=== PATIENT | male | born 1960 | race Caucasian/White ===

== ENCOUNTER → 2016-07-21 | Outpatient (CLI) | payer OTHER | LOC: FIMAGING 17:55 | PROVIDERS: ATTEND Physician Assistant | DX: S92.251A Displaced fracture of navicular [scaphoid] of right foot, initial encounter for closed fracture (principal); M77.31 Calcaneal spur, right foot; M19.071 Primary osteoarthritis, right ankle and foot ==

== ENCOUNTER 2017-03-03 16:39 | Emergency (ER) | payer OTHER ==
--- NOTE | 2017-03-03 16:55 | CPEKG ---
Heart Rate: 96 RR Interval: 625 P-R Interval: 148 QRSD Interval: 88 QT Interval: 344 QTC Interval: 435 P [place]: 58 QRS [place]: 35 T Wave [place]: 28 EKG Severity - NORMAL ECG - EKG Impression: SINUS RHYTHM Electronically Signed By: Travon Diop 03-Mar-2017 23:12:34
--- NOTE | 2017-03-03 16:57 | EDPHY ---
H & P Stated Complaint: Chest pain, sob w/ deep breath Time Seen by Provider: 03/03/17 16:55 HPI/ROS: CHIEF COMPLAINT: Chest pain, shortness of breath HISTORY OF PRESENT ILLNESS: The patient is a 56 y/o male complaining of worsening chest pain and shortness of breath, onset last night. The pain began last night and was primarily located on both lateral sides of his chest. This morning it hurt more when he took a deep breath. Later today he started to have only right-sided chest pain and became short of breath. When he takes a deep breath the pain is a 6/10, when he is not taking a deep breath the pain is a 3/10. He is more comfortable while sitting up. Denies tobacco, alcohol, recent travel, recent fall, fever, chills, cough or other pertinent symptoms. Mother of PE after surgery; father of heart failure at 84 y/o. REVIEW OF SYSTEMS: A comprehensive 10 point review of systems is otherwise negative aside from elements mentioned in the history of present illness. PMH: Hypertension, hypercholesteremia SOCIAL HISTORY: Works for [employer], single, lives in [place] PHYSICAL EXAM: Gen: Awake, Alert, No Distress HEENT: Nose: no rhinorrhea Eyes: PERRLA, EOMI Mouth: Moist mucosa Neck: Supple, no JVD Chest: Right-sided point tenderness, lungs clear to auscultation Heart: S1, S2 normal, no murmur Abd: Soft, non-tender, no guarding Back: no CVA tenderness, no midline tenderness Ext: no edema, non-tender Skin: no rash Neuro: CN II-XII intact, Sensation grossly intact, Strength 5/5 in bilateral upper and lower extremities - Personal History Current Tetanus/Diphtheria Vaccine: Yes Tetanus Vaccine Date: with in the last 7 years - Medical/Surgical History Hx Asthma: No Hx Chronic Respiratory Disease: No Hx Diabetes: No Hx Cardiac Disease: No Hx Renal Disease: No Hx Cirrhosis: No Hx Alcoholism: No Hx HIV/AIDS: No Hx Splenectomy or Spleen Trauma: No Other PMH: spinal fusion c5-7 - Social History Smoking Status: Former smoker Constitutional: Initial Vital Signs Temperature (C) 37.6 C 03/03/17 16:39 Heart Rate 94 03/03/17 16:39 Respiratory Rate 16 03/03/17 16:39 Blood Pressure 136/118 H 03/03/17 16:39 O2 Sat (%) 93 03/03/17 16:39 O2 Delivery Mode Room Air Allergies/Adverse Reactions: No Known Allergies Allergy (Unverified 01/05/16 19:58) Home Medications: Medication Instructions Recorded Cholecalciferol Vit D3 [Vitamin D3 5,000 units PO DAILY 12/19/14 (*)] Sennosides/Docusate Sodium 1 tab PO BID #30 tab 12/25/14 [Senokot-S] Aspirin 81mg (*) 01/05/16 Fish Oil 01/05/16 Hydrocodone/APAP 5/325 [[place] 1 - 2 tab PO Q4H PRN #15 tab 01/05/16 5/325] Lipitor 01/05/16 Hydrocodone/Acetaminophen 1 - 2 each PO Q4-6PRN PRN #10 03/03/17 [Hydrocodon-Acetaminophen 5-325] tablet Medical Decision Making - Diagnostics Imaging Results: Imaging Impressions Chest X-Ray 03/03/17 18:26 Impression: Findings suggestive of airways disease are noted. Imaging: I viewed and interpreted images myself ED Course/Re-evaluation: The patient is a 56 y/o male presenting with shortness of breath and chest pain. On exam, he has right-sided point tenderness to his chest. Plan on labs and EKG. The 12 lead EKG was interpreted by myself. See hard copy and/or "tracemaster" electronic copy for interpretation. 1824: D-dimer is negative. His nurse reports the patient is in a significant amount of pain. Plan on Chest x-ray and 30mg IV Toradol. 1913: Chest x-ray shows a possible airway disease. 1914: Reassessed patient and discussed laboratory and imaging findings. He will be given an inspirometer to monitor his breathing every 10 minutes while awake. He will also be prescribed [place]. Return precautions provided; patient is comfortable with this plan. - Data Points Laboratory Results: Laboratory Results 03/03/17 17:10 03/03/17 17:10 03/03/17 03/03/17 03/03/17 18:50 17:10 17:10 WBC RBC Hgb Hct MCV MCH MCHC RDW Plt Count MPV Neut % (Auto) Lymph % (Auto) Major % (Auto) Eos % (Auto) Baso % (Auto) Nucleat RBC Rel Count Absolute Neuts (auto) Absolute Lymphs (auto) Absolute Monos (auto) Absolute Eos (auto) Absolute Basos (auto) Absolute Nucleated RBC Immature Gran % Immature Gran # D-Dimer 0.32 ug/mLFEU ug/mLFEU (0.00-0.50) Sodium 135 mEq/L mEq/L (134-144) Potassium 4.3 mEq/L mEq/L (3.5-5.2) Chloride 97 mEq/L mEq/L (97-110) Carbon Dioxide 25 mEq/l mEq/l (22-31) Anion Gap 13 mEq/L mEq/L (8-16) BUN 24 mg/dL H mg/dL (7-23) Creatinine 1.0 mg/dL mg/dL (0.7-1.3) Estimated GFR > 60 Glucose 92 mg/dL mg/dL (70-100) Calcium 9.8 mg/dL mg/dL (8.5-10.4) Troponin I < 0.012 ng/mL ng/mL (0.000-0.034) Urine Color YELLOW Urine Appearance CLEAR Urine pH 5.0 (5.0-7.5) Ur Specific Carrier 1.020 (1.002-1.030) Urine Protein NEGATIVE (NEGATIVE) Urine Ketones 1+ H (NEGATIVE) Urine Blood NEGATIVE (NEGATIVE) Urine Nitrate NEGATIVE (NEGATIVE) Urine Bilirubin NEGATIVE (NEGATIVE) Urine Urobilinogen NEGATIVE EU EU (0.2-1.0) Ur Leukocyte Esterase NEGATIVE (NEGATIVE) Urine Glucose NEGATIVE (NEGATIVE) 03/03/17 17:10 WBC 13.52 10^3/uL H 10^3/uL (3.80-9.50) RBC 5.65 10^6/uL 10^6/uL (4.40-6.38) Hgb 17.6 g/dL H g/dL (13.7-17.5) Hct 51.7 % H % (40.0-51.0) MCV 91.5 fL fL (81.5-99.8) MCH 31.2 pg pg (27.9-34.1) MCHC 34.0 g/dL g/dL (32.4-36.7) RDW 15.0 % % (11.5-15.2) Plt Count 241 10^3/uL 10^3/uL (150-400) MPV 9.8 fL fL (8.7-11.7) Neut % (Auto) 74.9 % H % (39.3-74.2) Lymph % (Auto) 15.4 % % (15.0-45.0) Major % (Auto) 7.9 % % (4.5-13.0) Eos % (Auto) 1.0 % % (0.6-7.6) Baso % (Auto) 0.4 % % (0.3-1.7) Nucleat RBC Rel Count 0.0 % % (0.0-0.2) Absolute Neuts (auto) 10.12 10^3/uL H 10^3/uL (1.70-6.50) Absolute Lymphs (auto) 2.08 10^3/uL 10^3/uL (1.00-3.00) Absolute Monos (auto) 1.07 10^3/uL H 10^3/uL (0.30-0.80) Absolute Eos (auto) 0.13 10^3/uL 10^3/uL (0.03-0.40) Absolute Basos (auto) 0.06 10^3/uL 10^3/uL (0.02-0.10) Absolute Nucleated RBC 0.00 10^3/uL 10^3/uL (0-0.01) Immature Gran % 0.4 % % (0.0-1.1) Immature Gran # 0.06 10^3/uL 10^3/uL (0.00-0.10) D-Dimer Sodium Potassium Chloride Carbon Dioxide Anion Gap BUN Creatinine Estimated GFR Glucose Calcium Troponin I Urine Color Urine Appearance Urine pH Ur Specific Carrier Urine Protein Urine Ketones Urine Blood Urine Nitrate Urine Bilirubin Urine Urobilinogen Ur Leukocyte Esterase Urine Glucose Medications Given: Discontinued Medications Hydrocodone Bitart/Acetaminophen ([place] 5/325mg Prepack#6) 1 btl TAKEHOME EDNOW ONE Stop: 03/03/17 19:27 Last Admin: 03/03/17 19:35 Dose: 1 btl Ketorolac Tromethamine (Toradol) 15 mg IVP EDNOW ONE Stop: 03/03/17 18:26 Last Admin: 03/03/17 18:27 Dose: 15 mg Departure - Departure Disposition: Home, Routine, Self-Care Clinical Impression: Chest wall pain Condition: Good Instructions: Hydrocodone/Acetaminophen (By mouth), Chest Wall Pain (ED) Additional Instructions: 1. Use your inspirometer every 10 minutes while awake. 2. Take ibuprofen as needed for pain. 3. Take 1-2 [place] Q4-6 PRN. 4. Follow up with your primary care provider in the next 3-4 days. 5. Return to the ED if you experience chest pain, severe shortness of breath, numbness, weakness, fever or other worsening symptoms. Referrals: Staci Chowdhury PA [Primary Care Provider] - As per Instructions Prescriptions: Hydrocodone/Acetaminophen [Hydrocodon-Acetaminophen 5-325] 1 - 2 each PO Q4- 6PRN PRN #10 tablet PRN Reason: Pain, Severe Report Scribed for: Travon Diop Report Scribed by: Laurel Barrera Date of Report: 03/03/17 Time of Report: 16:57
[2017-03-03 17:35] LABS: ANION GAP 13 mEq/L (8-16); CALCIUM 9.8 mg/dL (8.5-10.4); CARBON DIOXIDE 25 mEq/l (22-31); CHLORIDE 97 mEq/L (97-110); GLOMERULAR FILTRATION RATE > 60; GLUCOSE 92 mg/dL (70-100); POTASSIUM 4.3 mEq/L (3.5-5.2); SODIUM 135 mEq/L (134-144)
[2017-03-03 17:47] LABS: TROPONIN I < 0.012 ng/mL (0.000-0.034)
[2017-03-03 17:48] LABS: % IMMATURE GRANULYOCYTES 0.4 % (0.0-1.1); ABSOLUTE IMMATURE GRANULOCYTES 0.06 10^3/uL (0.00-0.10); ADD DIFF? NO; ADD MORPH? NO; ADD SCAN? NO; ATYPICAL LYMPHOCYTE FLAG 0 (0-99); FRAGMENT RBC FLAG 0 (0-99); HEMATOCRIT 51.7 % (40.0-51.0); HEMOGLOBIN 17.6 g/dL (13.7-17.5); LEFT SHIFT FLG 0 (0-99); LIPEMIA HEMOLYSIS FLAG 90 (0-99); MEAN CELL HEMOGLOBIN 31.2 pg (27.9-34.1); MEAN CELL VOLUME 91.5 fL (81.5-99.8); MEAN PLATELET VOLUME 9.8 fL (8.7-11.7); PLATELET CLUMPS FLAG 0 (0-99); PLATELET COUNT 241 10^3/uL (150-400); RED BLOOD CELL COUNT 5.65 10^6/uL (4.40-6.38)
[2017-03-03] MEDS ORDERED: KETOROLAC 30 MG/1 ML SDV IVP ONE (18:24)
[2017-03-03] MEDS ORDERED: KETOROLAC 15 MG/1 ML SDV IVP ONE (18:25)
[2017-03-03 19:05] LABS: COLOR YELLOW; LEUKOCYTE ESTERASE,URINE NEGATIVE (NEGATIVE); NITRITE,URINE NEGATIVE (NEGATIVE)
[2017-03-03] MEDS ORDERED: HYDROCOD/APAP 5/325 PREPACK#6 BTL TAKEHOME ONE (19:26)
[2017-03-03 19:28] VITALS: BP 144/80; PULSE 85; RESP 20; TEMP 98.2; O2SAT 94
== END 2017-03-03 19:39 | disposition home or self-care (01) ==
DX: R07.89 Other chest pain (principal); I10 Essential (primary) hypertension; Z87.891 Personal history of nicotine dependence; Z79.82 Long term (current) use of aspirin
CPT/HCPCS: 96374; J1885

== ENCOUNTER 2017-03-05 08:47 | Observation (INO) | payer OTHER ==
[2017-03-05] MEDS ORDERED: ONDANSETRON 4 MG/2 ML VIAL IVP ONE (08:56)
[2017-03-05] MEDS ORDERED: HYDROmorphONE/DILAUDID 1 MG/ML INJ IVP ONE ×2 (08:56→09:18)
[2017-03-05] MEDS ORDERED: NS 1,000 ML IV ONE (08:56)
[2017-03-05] MEDS ORDERED: KETOROLAC 30 MG/1 ML SDV IVP ONE ×2 (08:56→13:34)
[2017-03-05] MEDS ORDERED: ONDANSETRON 4 MG/2 ML VIAL ONE (08:58)
[2017-03-05] MEDS ORDERED: KETOROLAC 30 MG/1 ML SDV ONE (08:58)
[2017-03-05] MEDS ORDERED: HYDROmorphONE/DILAUDID 1 MG/ML INJ ONE (08:58)
--- NOTE | 2017-03-05 09:08 | EDPHY ---
H & P <Audi Del Valle - Last Filed: 03/05/17 10:09> Stated Complaint: r chest and back pain Source: Patient Exam Limitations: No limitations - Personal History Current Tetanus/Diphtheria Vaccine: Yes Tetanus Vaccine Date: with in the last 7 years - Medical/Surgical History Hx Asthma: No Hx Chronic Respiratory Disease: No Hx Diabetes: No Hx Cardiac Disease: No Hx Renal Disease: No Hx Cirrhosis: No Hx Alcoholism: No Hx HIV/AIDS: No Hx Splenectomy or Spleen Trauma: No Other PMH: Medical Hx: denies. Surgical Hx: spinal fusion c5-7. Social Hx: employee at [employer] - Social History Smoking Status: Former smoker <AndreVanessa - Last Filed: 03/05/17 11:52> Time Seen by Provider: 03/05/17 09:04 HPI/ROS: HPI: This is a 56-year-old male who presents with Chief Complaint: Right upper quadrant pain Location: Right upper quadrant/right flank Quality: Pain Duration: Since Signs and Symptoms: No fever, no chills, no nausea, no vomiting, no shortness of breath, no diaphoresis, no diarrhea, no dysuria, no back pain Timing: Worsening Severity: 03/07 Context: Patient presents with complaints of right upper quadrant/right flank sharp, constant, nonradiating pain that has worsened since . He was seen here on 03/03/2017 with complaints at that time of right anterior lower rib pain; he had an extensive workup that ruled out ACS/pneumonia/pulmonary embolism/congestive heart failure. He reports that the pain has been constant since then but rapidly worsened this morning to the worse it has ever been. He has no history of kidney stones. No history of abdominal surgeries. Had a bowel movement yesterday but did not have 1 today. Notes that he has lost 10 lb over last 2 months due to change in diet. Modifying Factors: [place] without relief Comment: ROS: see HPI Constitutional: No fever, no chills, no weight loss Eyes: No blurred vision Respiratory: No shortness of breath, no cough Cardiovascular: No chest pain Gastrointestinal: No nausea, no vomiting, no diarrhea Genitourinary: No dysuria Extremities: No myalgias Neurologic: No weakness, no numbness Skin: No rashes Hematologic: No bruising, no bleeding CONSTITUTIONAL: Overweight adult white male, nontoxic appearance, awake and alert, moderate distress HEENT: Atraumatic and normocephalic, PERRL, EOMI. Tympanic membranes clear. Oropharynx clear, no exudate and moist pink mucosa. Airway patent. No lymphadenopathy. No meningismus. Cardiovascular: Normal S1/S2, regular rate, regular rhythm, without murmur rub or gallop. PULMONARY/CHEST: Symmetrical and nontender. Clear to auscultation bilaterally. Good air movement. No accessory muscle usage. ABDOMEN: Soft, nondistended, right upper quadrant moderate tenderness, no rebound, no guarding, no peritoneal signs, no masses or organomegaly. + right CVAT. EXTREMITIES: 2/2 pulses, no deformities, no clubbing, no cyanosis or edema. NEUROLOGICAL: no focal neuro deficits. GCS 15. SKIN: Warm and dry, no erythema. no rash. Good capillary refill. (Vanessa Powell) Constitutional: Initial Vital Signs Temperature (C) 36.3 C 03/05/17 08:49 Heart Rate 95 03/05/17 08:49 Respiratory Rate 18 03/05/17 08:49 Blood Pressure 189/82 H 03/05/17 08:49 O2 Sat (%) 92 03/05/17 08:49 O2 Delivery Mode Nasal Cannula O2 (L/minute) 2 Allergies/Adverse Reactions: No Known Allergies Allergy (Verified 03/05/17 08:47) Home Medications: Medication Instructions Recorded Cholecalciferol Vit D3 [Vitamin D3 5,000 units PO DAILY 12/19/14 (*)] Sennosides/Docusate Sodium 1 tab PO BID #30 tab 12/25/14 [Senokot-S] Aspirin 81mg (*) 01/05/16 Fish Oil 01/05/16 Hydrocodone/APAP 5/325 [[place] 1 - 2 tab PO Q4H PRN #15 tab 01/05/16 5/325] Lipitor 01/05/16 Hydrocodone/Acetaminophen 1 - 2 each PO Q4-6PRN PRN #10 03/03/17 [Hydrocodon-Acetaminophen 5-325] tablet Medical Decision Making <Audi Del Valle - Last Filed: 03/05/17 10:09> <Vanessa Powell - Last Filed: 03/05/17 11:52> - Diagnostics Imaging Results: Imaging Impressions Abdomen Ultrasound 03/05/17 08:58 Impression: Limited study secondary to overlying bowel gas. Mild sludge is seen in the gallbladder with no evidence for cholecystitis. Renal cortical cyst right kidney. Abdomen/Pelvis CT 03/05/17 08:58 Impression: 1. Pneumonia right lower lobe and small right pleural effusion. Possible subtle infiltrate left lower lobe and right middle lobe. 2. No evidence for nephrolithiasis or hydronephrosis. No evidence for ureteral calculus or dilatation. 3. Other chronic findings, as above. Results called and discussed with Vanessa Powell PA-C on 05 March 2017 at 1055 hours. Attention: This CT examination is specifically designed to evaluate patients who are clinically suspected of having acute obstructive uropathy. This examination does not use radiographic contrast, and as such, provides only a limited evaluation of the abdomen, pelvis, and retroperitoneum. If there is further clinical suspicion for pathological conditions other than obstructive uropathy, a complete CT evaluation of the abdomen and pelvis utilizing intravenous, oral, and rectal contrast should be considered. Procedures: 12 lead EKG: Indication: Abdominal pain Rhythm: Normal sinus rhythm, rate 86 beats per minute [place]: Normal Intervals: Normal QRS: Normal ST segments: Normal INTERPRETATION: Normal EKG. Comparison: 03/05/2017; no changes The 12 lead EKG was interpreted by myself and with attending. (Vanessa Powell) ED Course/Re-evaluation: Labs, IV fluids, IV medications, CT abdomen and pelvis without contrast, right upper quadrant ultrasound, EKG ordered 0845: Patient given IV Toradol, IV Dilaudid, IV Zofran, 1 L normal saline bolus upon arrival Afebrile. No systemic signs. 940: Labs reviewed and no significant abnormality including no elevated LFTs or obstructive pathology seen 1050: Called by radiologist who advised ultrasound shows mild sludge and small stone. CT abdominal pelvis scan does not show any appendicitis, cholecystitis, kidney stones. Does show patchy infiltrate in the right lower lobe. 1150: Bcx and IV Levaquin for community-acquired pneumonia. Discussed case with attending and could be referred from splinting; no signs of sepsis/hypoxia 1100: Reassessed patient and pain finally controlled 1110: Consult with Dr. Deng in regards to gallbladder disease who will kindly admit patient for further care. (Vanessa Powell) Differential Diagnosis: Abdominal pain including but not limited to appendicitis, cholecystitis, nephrolithiasis, gastritis and urinary tract infection. (Vanessa Powell) Other Provider: 1007: Assessed patient at the request of Vanessa Powell, PAC. I concur with Vanessa Powell's findings. (Audi Del Valle) - Data Points Laboratory Results: Laboratory Results 03/05/17 09:00 03/05/17 09:00 03/05/17 03/05/17 03/05/17 09:00 09:00 09:00 WBC 10.18 10^3/uL H 10^3/uL (3.80-9.50) RBC 5.66 10^6/uL 10^6/uL (4.40-6.38) Hgb 17.6 g/dL H g/dL (13.7-17.5) Hct 52.4 % H % (40.0-51.0) MCV 92.6 fL fL (81.5-99.8) MCH 31.1 pg pg (27.9-34.1) MCHC 33.6 g/dL g/dL (32.4-36.7) RDW 15.0 % % (11.5-15.2) Plt Count 233 10^3/uL 10^3/uL (150-400) MPV 9.5 fL fL (8.7-11.7) Neut % (Auto) 73.6 % % (39.3-74.2) Lymph % (Auto) 16.9 % % (15.0-45.0) [place] % (Auto) 7.5 % % (4.5-13.0) Eos % (Auto) 1.2 % % (0.6-7.6) Baso % (Auto) 0.3 % % (0.3-1.7) Nucleat RBC Rel Count 0.0 % % (0.0-0.2) Absolute Neuts (auto) 7.50 10^3/uL H 10^3/uL (1.70-6.50) Absolute Lymphs (auto) 1.72 10^3/uL 10^3/uL (1.00-3.00) Absolute Monos (auto) 0.76 10^3/uL 10^3/uL (0.30-0.80) Absolute Eos (auto) 0.12 10^3/uL 10^3/uL (0.03-0.40) Absolute Basos (auto) 0.03 10^3/uL 10^3/uL (0.02-0.10) Absolute Nucleated RBC 0.00 10^3/uL 10^3/uL (0-0.01) Immature Gran % 0.5 % % (0.0-1.1) Immature Gran # 0.05 10^3/uL 10^3/uL (0.00-0.10) PT 12.5 SEC SEC (12.0-15.0) INR 0.94 (0.83-1.16) APTT 26.7 SEC SEC (23.0-38.0) VBG Lactic Acid Sodium 140 mEq/L mEq/L (134-144) Potassium 4.1 mEq/L mEq/L (3.5-5.2) Chloride 99 mEq/L mEq/L (97-110) Carbon Dioxide 27 mEq/l mEq/l (22-31) Anion Gap 14 mEq/L mEq/L (8-16) BUN 18 mg/dL mg/dL (7-23) Creatinine 0.9 mg/dL mg/dL (0.7-1.3) Estimated GFR > 60 Glucose 107 mg/dL H mg/dL (70-100) Calcium 9.6 mg/dL mg/dL (8.5-10.4) Total Bilirubin 1.5 mg/dL H mg/dL (0.1-1.4) Conjugated Bilirubin 0.3 mg/dL mg/dL (0.0-0.5) Unconjugated Bilirubin 1.2 mg/dL H mg/dL (0.0-1.1) AST 29 IU/L IU/L (17-59) ALT 49 IU/L IU/L (21-72) Alkaline Phosphatase 68 IU/L IU/L (38-126) Total Protein 8.1 g/dL g/dL (6.3-8.2) Albumin 4.6 g/dL g/dL (3.5-5.0) Lipase 85 IU/L IU/L (23-300) 03/05/17 09:00 WBC RBC Hgb Hct MCV MCH MCHC RDW Plt Count MPV Neut % (Auto) Lymph % (Auto) [place] % (Auto) Eos % (Auto) Baso % (Auto) Nucleat RBC Rel Count Absolute Neuts (auto) Absolute Lymphs (auto) Absolute Monos (auto) Absolute Eos (auto) Absolute Basos (auto) Absolute Nucleated RBC Immature Gran % Immature Gran # PT INR APTT VBG Lactic Acid 1.5 mmol/L mmol/L (0.7-2.1) Sodium Potassium Chloride Carbon Dioxide Anion Gap BUN Creatinine Estimated GFR Glucose Calcium Total Bilirubin Conjugated Bilirubin Unconjugated Bilirubin AST ALT Alkaline Phosphatase Total Protein Albumin Lipase Medications Given: Discontinued Medications Hydromorphone HCl (Dilaudid) 1 mg IVP EDNOW ONE Stop: 03/05/17 08:57 Last Admin: 03/05/17 09:03 Dose: 1 mg Hydromorphone HCl (Dilaudid) 0.5 mg IVP EDNOW ONE Stop: 03/05/17 09:19 Last Admin: 03/05/17 09:21 Dose: 0.5 mg Hydromorphone HCl (Dilaudid) 1 mg IVP EDNOW ONE Stop: 03/05/17 09:20 Last Admin: 03/05/17 09:34 Dose: 0.5 mg Sodium Chloride (Ns) 1,000 mls @ 0 mls/hr IV EDNOW ONE; Wide Open PRN Reason: Protocol Stop: 03/05/17 08:57 Last Admin: 03/05/17 09:00 Dose: 1,000 mls Ketorolac Tromethamine (Toradol) 30 mg IVP EDNOW ONE Stop: 03/05/17 08:57 Last Admin: 03/05/17 09:02 Dose: 30 mg Ondansetron HCl (Zofran) 4 mg IVP EDNOW ONE Stop: 03/05/17 08:57 Last Admin: 03/05/17 09:01 Dose: 4 mg Departure <Audi Del Valle - Last Filed: 03/05/17 10:09> <Vanessa Powell - Last Filed: 03/05/17 11:52> - Departure Disposition: [facility] Clinical Impression: Sludge in gallbladder Community acquired pneumonia Qualifiers: Laterality: right Lung location: lower lobe of lung Qualified Code(s): J18.1 - Lobar pneumonia, unspecified organism Report Scribed for: Audi Del Valle Report Scribed by: Laurel Barrera Date of Report: 03/05/17 Time of Report: 10:08 <Audi Del Valle M - Last Filed: 03/05/17 10:09>
[2017-03-05 09:11] LABS: % IMMATURE GRANULYOCYTES 0.5 % (0.0-1.1); ABSOLUTE IMMATURE GRANULOCYTES 0.05 10^3/uL (0.00-0.10); ADD DIFF? NO; ADD MORPH? NO; ADD SCAN? NO; ATYPICAL LYMPHOCYTE FLAG 0 (0-99); FRAGMENT RBC FLAG 0 (0-99); HEMATOCRIT 52.4 % (40.0-51.0); HEMOGLOBIN 17.6 g/dL (13.7-17.5); LEFT SHIFT FLG 0 (0-99); LIPEMIA HEMOLYSIS FLAG 80 (0-99); MEAN CELL HEMOGLOBIN 31.1 pg (27.9-34.1); MEAN CELL HEMOGLOBIN CONCENTR. 33.6 g/dL (32.4-36.7); MEAN CELL VOLUME 92.6 fL (81.5-99.8); MEAN PLATELET VOLUME 9.5 fL (8.7-11.7); PLATELET CLUMPS FLAG 0 (0-99); PLATELET COUNT 233 10^3/uL (150-400); RED BLOOD CELL COUNT 5.66 10^6/uL (4.40-6.38)
--- NOTE | 2017-03-05 09:17 | CPEKG ---
Heart Rate: 90 RR Interval: 667 P-R Interval: 148 QRSD Interval: 94 QT Interval: 344 QTC Interval: 421 P [place]: 45 QRS [place]: 26 T Wave [place]: 9 EKG Severity - NORMAL ECG - EKG Impression: SINUS RHYTHM Electronically Signed By: Chris Alberto 07-Mar-2017 20:16:29
[2017-03-05 09:22] LABS: INR 0.94 (0.83-1.16); PROTIME(PATIENT) 12.5 SEC (12.0-15.0)
[2017-03-05 09:23] LABS: APTT 26.7 SEC (23.0-38.0)
[2017-03-05 09:26] LABS: ALANINE AMINOTRANSFERASE 49 IU/L (21-72); ALBUMIN 4.6 g/dL (3.5-5.0); ALKALINE PHOSPHATASE 68 IU/L (38-126); ANION GAP 14 mEq/L (8-16); ASPARTATE AMINOTRANSFERASE 29 IU/L (17-59); BILIRUBIN,TOTAL 1.5 mg/dL (0.1-1.4); BILIRUBIN-CONJUGATED 0.3 mg/dL (0.0-0.5); BILIRUBIN-UNCONJUGATED 1.2 mg/dL (0.0-1.1); CALCIUM 9.6 mg/dL (8.5-10.4); CARBON DIOXIDE 27 mEq/l (22-31); CHLORIDE 99 mEq/L (97-110); CREATININE 0.9 mg/dL (0.7-1.3); GLOMERULAR FILTRATION RATE > 60; GLUCOSE 107 mg/dL (70-100); POTASSIUM 4.1 mEq/L (3.5-5.2); SODIUM 140 mEq/L (134-144); TOTAL PROTEIN 8.1 g/dL (6.3-8.2)
[2017-03-05] MEDS: HYDROmorphONE/DILAUDID 1 MG/ML INJ IVP ONE ×2 (09:30→09:34)
[2017-03-05] MEDS ORDERED: levOFLOXACIN 750 MG/DEXTROSE/150 ML BAG IV ONE (12:52)
[2017-03-05 13:01] LABS: COLOR YELLOW; LEUKOCYTE ESTERASE,URINE NEGATIVE (NEGATIVE); NITRITE,URINE NEGATIVE (NEGATIVE)
--- NOTE | 2017-03-05 13:29 | SOAPPROG ---
[facility] Progress Note Assessment/Plan: Assessment: 56-YEAR-OLD MALE ADMITTED WITH RIGHT UPPER QUADRANT PAIN EXTENDING INTO HIS BACK FOR 3 DAYS/SEEN IN THE ER ON MONDAY WITH A NEGATIVE WORKUP FOR PULMONARY EMBOLUS AT THIS ADMISSION CT SCAN IS NEGATIVE FOR ANY MAJOR ETIOLOGY EXCEPT FOR PNEUMONIA AND SMALL PLEURAL EFFUSION ON THE RIGHT SIDE GALLBLADDER ULTRASOUND SHOWS SOME SLUDGE BUT NO STONES ARE THICKNESS/LFTS HAVE BEEN NORMAL/WBC IS 10.4 AFEBRILE HEENT WITHOUT ADENOPATHY OR ORAL LESIONS OR ICTERUS CHEST CLEAR AND SYMMETRIC COR REGULAR RHYTHM ABDOMEN SOFT WITH MINIMAL RIGHT UPPER QUADRANT TENDERNESS EXTREMITIES ARE BENIGN WITH FULL RANGE OF MOTION FULL PULSES, HE DOES HAVE SOME VARICOSE VEINS SKIN REVEALS NO MAJOR ABNORMALITIES IMPRESSION: I SUSPECT HE IS GETTING A RIGHT LOWER LOBE PNEUMONIA RATHER GALLBLADDER TROUBLE WITH NORMAL LFTS IN A NEGATIVE ULTRASOUND Plan: ADMIT FOR OBSERVATION AND PAIN CONTROL/CONSIDER HIDA SCAN IF PAIN DOES NOT RESOLVE QUICKLY 03/05/17 13:25 Objective: Vital Signs Temp Pulse Resp BP Pulse Ox 36.3 C 93 16 117/66 93 03/05/17 08:49 03/05/17 12:56 03/05/17 12:56 03/05/17 12:56 03/05/17 12:56 PT 12.5 SEC (12.0-15.0) 03/05/17 09:00 INR 0.94 (0.83-1.16) 03/05/17 09:00 ICD10 Worksheet Patient Problems: Problems Problem Status Onset Community acquired pneumonia Acute Sludge in gallbladder Acute Cervical radiculitis Acute Neck pain Acute
[2017-03-05] MEDS ORDERED: ONDANSETRON 4 MG/2 ML VIAL IVP PRN (13:34)
[2017-03-05] MEDS ORDERED: HYDROmorphONE/DILAUDID 1 MG/ML INJ IVP PRN (13:34)
[2017-03-05] MEDS: OXYCODONE/APAP 5/325 TAB PO PRN ×3 (15:07→22:16)
[2017-03-05] MEDS: D5W 1/2 NS W/ 20 KCl/L 1,000 ML IV SCH (15:09)
[2017-03-05] MEDS: KETOROLAC 15 MG/1 ML SDV IVP SCH ×2 (18:10→23:31)
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
--- NOTE | 2017-03-05 20:26 | SOAPPROG ---
[facility] Progress Note Assessment/Plan: Assessment: 56-YEAR-OLD MALE ADMITTED WITH RIGHT UPPER QUADRANT PAIN EXTENDING INTO HIS BACK FOR 3 DAYS/SEEN IN THE ER ON MONDAY WITH A NEGATIVE WORKUP FOR PULMONARY EMBOLUS AT THIS ADMISSION CT SCAN IS NEGATIVE FOR ANY MAJOR ETIOLOGY EXCEPT FOR PNEUMONIA AND SMALL PLEURAL EFFUSION ON THE RIGHT SIDE GALLBLADDER ULTRASOUND SHOWS SOME SLUDGE BUT NO STONES ARE THICKNESS/LFTS HAVE BEEN NORMAL/WBC IS 10.4 AFEBRILE HEENT WITHOUT ADENOPATHY OR ORAL LESIONS OR ICTERUS CHEST CLEAR AND SYMMETRIC COR REGULAR RHYTHM ABDOMEN SOFT WITH MINIMAL RIGHT UPPER QUADRANT TENDERNESS EXTREMITIES ARE BENIGN WITH FULL RANGE OF MOTION FULL PULSES, HE DOES HAVE SOME VARICOSE VEINS SKIN REVEALS NO MAJOR ABNORMALITIES IMPRESSION: I SUSPECT HE IS GETTING A RIGHT LOWER LOBE PNEUMONIA RATHER GALLBLADDER TROUBLE WITH NORMAL LFTS IN A NEGATIVE ULTRASOUND Plan: ADMIT FOR OBSERVATION AND PAIN CONTROL/CONSIDER HIDA SCAN IF PAIN DOES NOT RESOLVE QUICKLY 03/05/17 13:25 03/05/17 20:25 much better last h &p note on wrong pt Objective: Vital Signs Temp Pulse Resp BP Pulse Ox 37.0 C 91 18 130/64 H 97 03/05/17 20:00 03/05/17 20:00 03/05/17 20:00 03/05/17 20:00 03/05/17 20:00 03/04/17 03/05/17 03/06/17 05:59 05:59 05:59 Intake Total 225 Balance 225 PT 12.5 SEC (12.0-15.0) 03/05/17 09:00 INR 0.94 (0.83-1.16) 03/05/17 09:00 ICD10 Worksheet Patient Problems: Problems Problem Status Onset Community acquired pneumonia Acute Sludge in gallbladder Acute Cervical radiculitis Acute Neck pain Acute
[2017-03-05] MEDS: GABAPENTIN 300 MG CAP PO SCH (20:51)
[2017-03-05] MEDS: SENNOSIDES 1 TAB PO SCH (20:52)
[2017-03-05] MEDS ORDERED: Melatonin/Pyridoxine [Melatonin 5 Mg Tablet] PO SCH (21:00)
[2017-03-06] MEDS: D5W 1/2 NS W/ 20 KCl/L 1,000 ML IV SCH (05:00)
[2017-03-06] MEDS: KETOROLAC 15 MG/1 ML SDV IVP SCH ×4 (05:02→23:59)
[2017-03-06 05:30] LABS: % IMMATURE GRANULYOCYTES 0.6 % (0.0-1.1); ABSOLUTE IMMATURE GRANULOCYTES 0.05 10^3/uL (0.00-0.10); ADD DIFF? NO; ADD MORPH? NO; ADD SCAN? NO; ATYPICAL LYMPHOCYTE FLAG 0 (0-99); FRAGMENT RBC FLAG 0 (0-99); HEMATOCRIT 44.6 % (40.0-51.0); HEMOGLOBIN 14.9 g/dL (13.7-17.5); LEFT SHIFT FLG 0 (0-99); LIPEMIA HEMOLYSIS FLAG 80 (0-99); MEAN CELL HEMOGLOBIN 31.2 pg (27.9-34.1); MEAN CELL HEMOGLOBIN CONCENTR. 33.4 g/dL (32.4-36.7); MEAN CELL VOLUME 93.5 fL (81.5-99.8); MEAN PLATELET VOLUME 9.8 fL (8.7-11.7); PLATELET CLUMPS FLAG 10 (0-99); PLATELET COUNT 206 10^3/uL (150-400); RED BLOOD CELL COUNT 4.77 10^6/uL (4.40-6.38); RED CELL DISTRIBUTION WIDTH 14.9 % (11.5-15.2)
[2017-03-06 05:56] LABS: ALANINE AMINOTRANSFERASE 33 IU/L (21-72); ALBUMIN 3.3 g/dL (3.5-5.0); ALKALINE PHOSPHATASE 49 IU/L (38-126); AMYLASE 32 IU/L (30-110); ANION GAP 9 mEq/L (8-16); ASPARTATE AMINOTRANSFERASE 27 IU/L (17-59); BILIRUBIN,TOTAL 1.1 mg/dL (0.1-1.4); BILIRUBIN-CONJUGATED 0.3 mg/dL (0.0-0.5); BILIRUBIN-UNCONJUGATED 0.8 mg/dL (0.0-1.1); CALCIUM 8.4 mg/dL (8.5-10.4); CARBON DIOXIDE 24 mEq/l (22-31); CHLORIDE 102 mEq/L (97-110); CREATININE 0.9 mg/dL (0.7-1.3); GLOMERULAR FILTRATION RATE > 60; GLUCOSE 88 mg/dL (70-100); POTASSIUM 4.1 mEq/L (3.5-5.2); SODIUM 135 mEq/L (134-144)
--- NOTE | 2017-03-06 10:52 | SOAPPROG ---
[facility] Progress Note Assessment/Plan: Assessment/Plan: 56 Y M admitted with RUQ abd pain. US shows sludge. LFTs ok. WBC mildly elevated upon admit--10,000. Afebrile. CT to r/o nephrolithiasis shows possible RLL PNA. Awaiting HIDA and CXR. Suspect problem is PNA. Will consult hospitalist service. Will wait to start abx until HIDA results. Seen and examined by Dr. Deng. 03/06/17 10:52 Objective: Vital Signs Temp Pulse Resp BP Pulse Ox 37.3 C 85 16 140/68 H 93 03/06/17 08:00 03/06/17 08:00 03/06/17 08:00 03/06/17 08:00 03/06/17 08:00 Laboratory Results 03/06/17 04:58 03/06/17 04:58 03/05/17 03/06/17 03/07/17 05:59 05:59 05:59 Intake Total 1205 Balance 1205 PT 12.5 SEC (12.0-15.0) 03/05/17 09:00 INR 0.94 (0.83-1.16) 03/05/17 09:00 ICD10 Worksheet Patient Problems: Problems Problem Status Onset Community acquired pneumonia Acute Sludge in gallbladder Acute Cervical radiculitis Acute Neck pain Acute
[2017-03-06] MEDS: LISINOPRIL 20 MG TAB PO SCH (10:56)
[2017-03-06] MEDS: SENNOSIDES 1 TAB PO SCH (10:57)
--- NOTE | 2017-03-06 12:39 | SOAPPROG ---
SOAP Progress Note Assessment/Plan: Assessment: 56-YEAR-OLD MALE ADMITTED WITH RIGHT UPPER QUADRANT PAIN EXTENDING INTO HIS BACK FOR 3 DAYS/SEEN IN THE ER ON MONDAY WITH A NEGATIVE WORKUP FOR PULMONARY EMBOLUS AT THIS ADMISSION CT SCAN IS NEGATIVE FOR ANY MAJOR ETIOLOGY EXCEPT FOR PNEUMONIA AND SMALL PLEURAL EFFUSION ON THE RIGHT SIDE GALLBLADDER ULTRASOUND SHOWS SOME SLUDGE BUT NO STONES ARE THICKNESS/LFTS HAVE BEEN NORMAL/WBC IS 10.4 AFEBRILE HEENT WITHOUT ADENOPATHY OR ORAL LESIONS OR ICTERUS CHEST CLEAR AND SYMMETRIC COR REGULAR RHYTHM ABDOMEN SOFT WITH MINIMAL RIGHT UPPER QUADRANT TENDERNESS EXTREMITIES ARE BENIGN WITH FULL RANGE OF MOTION FULL PULSES, HE DOES HAVE SOME VARICOSE VEINS SKIN REVEALS NO MAJOR ABNORMALITIES IMPRESSION: I SUSPECT HE IS GETTING A RIGHT LOWER LOBE PNEUMONIA RATHER GALLBLADDER TROUBLE WITH NORMAL LFTS IN A NEGATIVE ULTRASOUND Plan: ADMIT FOR OBSERVATION AND PAIN CONTROL/CONSIDER HIDA SCAN IF PAIN DOES NOT RESOLVE QUICKLY 03/05/17 13:25 03/05/17 20:25 much better last h &p note on wrong pt 03/06/17 12:38 AFEBRILE/VITAL SIGNS STABLE/UNABLE TO COMPLETE HIDA SCAN BECAUSE OF PAIN/ PATIENT ALREADY ON LEVAQUIN FOR TREATMENT OF HIS PNEUMONIA PLAN CONSIDER IM CONSULT/ I DOUBT THIS PAIN IS RELATED TO HIS GALLBLADDER Objective: Vital Signs Temp Pulse Resp BP Pulse Ox 37.1 C 91 16 126/77 H 94 03/06/17 12:00 03/06/17 12:00 03/06/17 12:00 03/06/17 12:00 03/06/17 12:00 Laboratory Results 03/06/17 04:58 03/06/17 04:58 03/05/17 03/06/17 03/07/17 05:59 05:59 05:59 Intake Total 1205 Balance 1205 PT 12.5 SEC (12.0-15.0) 03/05/17 09:00 INR 0.94 (0.83-1.16) 03/05/17 09:00 ICD10 Worksheet Patient Problems: Problems Problem Status Onset Community acquired pneumonia Acute Sludge in gallbladder Acute Cervical radiculitis Acute Neck pain Acute
[2017-03-06] MEDS ORDERED: IOPAMIDOL (ISOVUE 370) 100 ML BTL IV ONE (13:34)
[2017-03-06] MEDS ORDERED: MAGNESIUM HYDROXIDE 30 ML UDCUP PO PRN (14:42)
[2017-03-06] MEDS ORDERED: BISACODYL 10 MG SUPP PR PRN (14:42)
[2017-03-06] MEDS ORDERED: LACTULOSE 20 GM/30 ML UDCUP PO PRN (14:42)
[2017-03-06] MEDS ORDERED: POLYETHYLENE GLYCOL 3350 17 GM PKT PO PRN (14:42)
--- NOTE | 2017-03-06 14:44 | GCON ---
[f rep st] CONSULTATION INTERNAL MEDICINE CONSULT. DATE OF CONSULTATION: 03/06/2017 REFERRING PHYSICIAN: Gerard Deng MD REASON FOR REFERRAL: Right-sided abdominal/upper lower chest pain and fever. 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 He has a history significant for hypertension and dyslipidemia and comes in with increasing pain in his right upper qu adrant. His pain started on Monday, escalated fairly quickly over 3 hours when he could no longer ta ke it and went to the emergency department for evaluation. They did some blood work and EKG and felt that he was low risk for blood clot and heart attack and was sent home on Percocet. Monday the pa in persisted. He was able to control it in the morning. However, over the course of Monday, his p ain escalated from a 3 to 6 out of 10 up to an 8/10. Monday, the pain continued to get worse up to a 10/10 and came in for further evaluation at the emergency department. The pain is quite positional. It is worse when he is lying on his back or his left side, but is marlon viated when he lies on his right side. As far as he can tell, it is not affected by eating or bowel movements. The pain is pleuritic in nature, but he denies significant shortness of breath or chest p ressure with it. He has lost 10 pounds in the last 2 months. This was planned. He has had no fever s or chills till this morning. He denies any significant cough. No nausea, vomiting. No changes in his bowels. REVIEW OF SYSTEMS: A 10-point review of systems including general, ENT, eyes, neck, heart, chest, ab domen, , musculoskeletal, neuro was reviewed with pertinent positives present in HPI. PAST MEDICAL HISTORY: Dyslipidemia and hypertension. Sleep apnea on CPAP. PAST SURGICAL HISTORY: Includes tonsillectomy, cervical fusion, and hand fusions. FAMILY HISTORY: Mother had a PE after a total knee replacement. Father from complications of A Fib. SOCIAL HISTORY: He is . He has 2 daughters. He denies any current tobacco or alcohol use. 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 PHYSICAL EXAM: VITAL SIGNS: His temp is currently 37.1, heart rate 91, blood pressure 126/77, respi rations 16. He is 93% on room air. GENERAL: He is a moderately obese, 56-year-old. He is in some mild distress due to pain. HEENT: Face is symmetric, atraumatic. Ears normal. Eyes anicteric. Pu pils are equal. Extraocular movements intact. Mucous membranes are moist. NECK: Supple without ad enopathy. HEART: Regular rate and rhythm. No murmur, gallop, or rub. LUNGS: Clear bilaterally. Slightly decreased breath sounds at the bases. No wheeze or rhonchi or rales. ABDOMEN: Obese, soft , no tenderness. However, he does have some tenderness on the right lower rib cage anteriorly and la terally. EXTREMITIES: Trace edema, bilaterally equal. No calf tenderness. MUSCULOSKELETAL: No liz int deformities or effusions noted. NEUROLOGIC: He is alert and oriented. His speech is fluent. H e is moving all 4 extremities. SKIN: No rash. LABORATORY DATA: CBC is within normal limits. Chemistry showed normal electrolytes and renal functi on. LFTs are normal. DIAGNOSTICS: Chest x-ray shows right basilar pleural parenchymal consolidation. He had a CT of his abdomen on Monday, which was personally reviewed with Pulmonology, and showed a consolidation in the right lower lobe with a small amount of effusion. Abdominal ultrasound showed sludging. No evidence of bile duct dilation. ASSESSMENT: A 56-year-old man presents with right-sided abdominal pain/upper lower chest pain which is pleuritic and positional in nature. Evaluation is remarkable for an elevated white count 2 days p rior to my evaluation which has since resolved and a likely right lower lobe consolidation consistent with pneumonia. Other etiologies could certainly be pulmonary embolism and infarct, although he did have a negative D-dimer 2-3 days ago, an effusion secondary to inflammation of his liver, and gallbl adder due to cholecystitis. PLAN: Agree to ongoing evaluation by General Surgery, although the patient really has minimal pain i n the right upper quadrant and a negative Peguero sign and normal LFTs. Given his consolidation, elliott d agree with treating for presumed pneumonia with Levaquin. Will follow up on blood cultures, and I will add a CT angiogram to rule out pulmonary embolism as he does have possibly wedge-shaped consolid ation despite his negative D-dimer previously. Thank you for this consultation. Will continue to follow the patient along with you. /[id number]/MODL
--- NOTE | 2017-03-06 15:01 | ASMTCMCOM ---
CM Note CM Note Notes: Patient admitted with RUQ pain. He likely has pneumonia. Patient said he's feeling well. Lives independently and doesn't have any discharge needs. CM available for any changes in plan. Date Signed: 03/06/2017 03:01 PM Electronically Signed By:Kary Jimenez RN
[2017-03-06] MEDS: APIXABAN 5 MG TAB PO SCH ×2 (16:21→20:29)
[2017-03-06] MEDS: OXYCODONE/APAP 5/325 TAB PO PRN ×2 (18:22→21:57)
[2017-03-06] MEDS: GABAPENTIN 300 MG CAP PO SCH (20:30)
[2017-03-06] MEDS: SENNOSIDES/DOCUSATE SODIUM TAB PO SCH (20:35)
[2017-03-06] MEDS ORDERED: MELATONIN 3 MG TAB PO SCH (21:00)
[2017-03-07 05:13] VITALS: O2SAT 93
[2017-03-07 05:13] LABS: % IMMATURE GRANULYOCYTES 0.3 % (0.0-1.1); ABSOLUTE IMMATURE GRANULOCYTES 0.02 10^3/uL (0.00-0.10); ADD DIFF? NO; ADD MORPH? NO; ADD SCAN? NO; ATYPICAL LYMPHOCYTE FLAG 10 (0-99); FRAGMENT RBC FLAG 0 (0-99); HEMATOCRIT 43.8 % (40.0-51.0); LEFT SHIFT FLG 0 (0-99); LIPEMIA HEMOLYSIS FLAG 90 (0-99); MEAN CELL HEMOGLOBIN 31.6 pg (27.9-34.1); MEAN CELL HEMOGLOBIN CONCENTR. 34.2 g/dL (32.4-36.7); MEAN CELL VOLUME 92.2 fL (81.5-99.8); MEAN PLATELET VOLUME 9.2 fL (8.7-11.7); PLATELET CLUMPS FLAG 0 (0-99); PLATELET COUNT 214 10^3/uL (150-400); RED BLOOD CELL COUNT 4.75 10^6/uL (4.40-6.38); RED CELL DISTRIBUTION WIDTH 14.6 % (11.5-15.2)
[2017-03-07] MEDS: KETOROLAC 15 MG/1 ML SDV IVP SCH (05:33)
[2017-03-07 05:37] LABS: ALANINE AMINOTRANSFERASE 35 IU/L (21-72); ALBUMIN 3.3 g/dL (3.5-5.0); ALKALINE PHOSPHATASE 48 IU/L (38-126); ANION GAP 9 mEq/L (8-16); ASPARTATE AMINOTRANSFERASE 22 IU/L (17-59); BILIRUBIN,TOTAL 1.1 mg/dL (0.1-1.4); CALCIUM 8.6 mg/dL (8.5-10.4); CARBON DIOXIDE 24 mEq/l (22-31); CHLORIDE 103 mEq/L (97-110); CREATININE 0.8 mg/dL (0.7-1.3); GLOMERULAR FILTRATION RATE > 60; GLUCOSE 72 mg/dL (70-100); SODIUM 136 mEq/L (134-144)
[2017-03-07 08:03] VITALS: BP 145/83; PULSE 68; RESP 20; TEMP 97.9
[2017-03-07] MEDS: SENNOSIDES/DOCUSATE SODIUM TAB PO SCH (08:46)
[2017-03-07] MEDS: LISINOPRIL 20 MG TAB PO SCH (08:46)
[2017-03-07] MEDS: APIXABAN 5 MG TAB PO SCH (08:46)
--- NOTE | 2017-03-07 10:02 | GDS ---
[f rep st] DISCHARGE SUMMARY DIAGNOSES: 1. Pulmonary embolism, subsegmental, with secondary pulmonary infarct. 2. Left lower lobe pneumonia. 3. Hypertension. 4. Dyslipidemia. 5. Sleep apnea. PROCEDURES DONE: 1. Chest and thoracic angiogram showing small subsegmental pulmonary embolism with infarct and left lower lobe consolidation, not associated with infarct. 2. Abdominal pelvic ultrasound showing sludge in the gallbladder. Abdominal ultrasound, sludge in t he gallbladder. CT, evidence of left lower lobe pneumonia. HOSPITAL COURSE: The patient is a 56-year-old man who was admitted with right-sided chest and upper abdominal pain. The pain was pleuritic and positional in nature. He initially was evaluated in the emergency department and sent home with pain medications. However, over the weekend, the pain escala melissa to a point where he returned to the emergency department and was admitted by Dr. Deng after a CT scan and abdominal ultrasound revealed sludge in the gallbladder. Further evaluation in the [facility] with a CT angiogram did reveal the above findings, and the patient was started on Eliquis for pulmo nary embolism as well as Levaquin for right lower lobe pneumonia. I suspect he may have had an unpro voked PE with secondary pneumonia due to hypoventilation and pleurisy. His risk factors for PE inclu de a family history in his mother as well as sedentary lifestyle and possible dehydration. I did dra chen a hyper coag panel on the day of discharge to be followed up by his primary care physician. The jef chelsie is also considering seeing Pulmonology for followup of his PE, and he will contact them. CONDITION ON DISCHARGE: Good. PHYSICAL EXAMINATION: VITAL SIGNS: Stable. His pain is much improved. DISCHARGE MEDICATIONS: Please see discharge medication form. New medications include Percocet, Leva rosalinda 750 daily for 4 more days, and Eliquis 10 mg b.i.d. for 1 week and then 5 mg b.i.d. ongoing. Total time spent with the patient on the day of discharge and coordination of care is 35 minutes. /[id number]/MODL
--- NOTE | 2017-03-07 12:20 | ASDISCHSUM ---
Discharge Information Plan Status:Home with No Needs Medically Cleared to Leave:03/07/2017 Discharge Date:03/07/2017 11:50 AM CM D/C Disposition: ADT D/C Disposition:Home, Routine, Self-Care Projected Discharge Date:03/07/2017 12:00 AM Transportation at D/C: Discharge Delay Reason: Follow-Up Date:03/07/2017 12:00 AM Discharge Slot: Final Diagnosis: Placement Information Patient Contact Information Contact Name:KATHLEEN Relationship:Daughter Address: Work Phone: City: [facility] Phone: State/Live Current Media Code: Email: Financial Information Financial Class:[facility] Primary Plan Desc:[facility] Primary Plan Number:[id number] Secondary Plan Desc: Secondary Plan Number: Assessment Information [facility] CM Progress Note CM Note CM Note Notes: Patient admitted with RUQ pain. He likely has pneumonia. Patient said he's feeling well. Lives independently and doesn't have any discharge needs. CM available for any changes in plan. Date Signed: 03/06/2017 03:01 PM Electronically Signed By:Kary Jimenez RN Intervention Information
--- NOTE | 2017-03-07 16:23 | GCON ---
[f rep st] CONSULTATION PULMONARY/CRITICAL CARE CONSULTATION DATE OF CONSULTATION: 03/07/2017 REFERRING PROVIDER: Kelsea Condon MD REASON FOR REFERRAL: Evaluation and management of pulmonary infiltrate and chest pain. 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 He re ports he was in his usual state of excellent health when about 4 days ago, he developed the onset of right-sided pleuritic chest pain in his lower chest. It was in the area over his lower ribs/liver as well as in the chest lateral to that. The pain was quite severe, and he also had point tenderness t here. He was seen in the emergency department where some blood tests, including a D-dimer, were nega tive and an ECG was unremarkable. He was sent home with a diagnosis of musculoskeletal pain. Over t he next few days, the pain increased to the point that he was unable to tolerate it, so he re-present ed to the hospital and was admitted to Dr. Deng' service for the possibility of cholecystitis. He described the pain as sharp and severe. It was worse in some positions such as lying on his back, but got better when he lay on his right side. It was not affected by diet. There was some shortnes s of breath associated with this pain. A chest x-ray was performed and showed a right basilar infilt rate. A CT scan of the abdomen was performed, which also showed peripheral infiltrate and a small ef fusion. The gallbladder was unremarkable. He was prescribed Levaquin. He denies any recent travel, leg immobility, or leg pain/swelling. He has had no prior history of similar chest pain. The patie nt has had a 10-pound intentional weight loss over the past 2 months. PAST MEDICAL HISTORY: 1. Hyperlipidemia. 2. Hypertension. 3. Sleep apnea. The patient was diagnosed several years ago and prescribed CPAP, which he uses ok stev[facility]. He reports good efficacy on CPAP downloads, but has not reviewed these with a physician in uite a while. He apparently had overnight oximetry done within the past year. 4. Osteoarthritis of the knees, status post injections of hyaluronic acid in the right knee, and chr onic knee pain. MEDICATIONS: At the time of admission, include furosemide, lisinopril, Neurontin, [place], atorvastati n, aspirin and melatonin. ALLERGIES: None. 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 He denies tobacco or alcohol use. FAMILY HISTORY: Patient's mother had a PE after total knee replacement 25 years ago. His father d from complications of atrial fibrillation. REVIEW OF SYSTEMS: A 10-point review of systems adds nothing to the history of present illness. PHYSICAL EXAMINATION: GENERAL: The patient is awake, alert, and in no acute distress. VITAL SIGNS: Blood pressure is 145/83 with a heart rate of 68. He is afebrile. Oxygen saturations are 93% on r oom air. His weight is 113.5 kg, with a BMI of 36. HEENT: Normocephalic and atraumatic. No icteru s. NECK: No JVD. Trachea is midline. CHEST: He has some decreased breath sounds and rales in the right base. He has some point tenderness over the right lateral ribs. CARDIAC: Regular rate and r hythm without murmur. ABDOMEN: Soft, nontender. Bowel sounds are present. EXTREMITIES: No clubbi ng, cyanosis, or edema. LABORATORY: CBC is normal, with a hemoglobin of 15.0, down from 17.6 at admission. Chemistry group is unremarkable. D-dimer was 0.32 on 03/03/2017. A CT scan of the chest demonstrates patchy periphe ral infiltrates in the right lower lobe with small pleural effusion and pulmonary embolism in the lat eral segment of the right lower lobe. Images reviewed. Ultrasound of the abdomen from 03/05 demonstr ates mild sludge in the gallbladder. ASSESSMENT: 1. Pulmonary embolism. The patient presented with acute pleuritic chest pain on 03/03, and imaging h as shown peripheral infiltrate as well as small effusion, with confirmation of a pulmonary embolism o n CT scan. The peripheral infiltrates likely represent small infarcts, which would have contributed to the patient's pleuritic chest pain. The patient is hemodynamically stable with good oxygenation a nd improved pain control. 2. Hypertension. The patient is mildly hypertensive here. 3. Possible pneumonia. The patient has been treated empirically for possible pneumonia prior to obt aining the CT angio results. I think it is unlikely that he has a secondary pneumonia at this point. 4. Obstructive sleep apnea. This is apparently well-treated per the patient, who reports compliance and excellent efficacy. 5. Polycythemia. The patient's hemoglobin is elevated at the time of admission, it quickly came robbie n with hydration and was not elevated on prior blood tests, the most recent of which was in 2014. Th is may have just been due to hemoconcentration, although it is also possible but less likely that he has some chronic hypoxemia. 6. Obesity. The patient has obesity with multiple comorbidities, including hypertension, hyperlipid emia, osteoarthritis of the knees, and obstructive sleep apnea. I had a long discussion with the lincoln che regarding the importance of weight control. RECOMMENDATIONS: 1. I agree with checking a hypercoagulability panel, particularly given the patient's positive famil y history for DVT. 2. I think the patient is appropriate to discharge on Eliquis. This should be continued for at leas t 6 months. Given that the patient is male and had an unprovoked PE with no significant contraindica tions to anticoagulation, indefinite anticoagulation may be appropriate. 3. I will see the patient back in followup to monitor his sleep apnea. The patient will attempt to get a copy of his overnight oximetry done within the past year to determine if there might be a compo nent of hypoxemia contributing to his initial polycythemia. If there is any question of this, repeat hemoglobin and overnight oximetry will be checked. 4. I think the patient is appropriate to discharge at this point. /[id number]/MODL
[2017-03-08 14:49] LABS: PROTEIN S ACTIVITY 147 % (65 - 160)
[2017-03-09 09:41] LABS: PROTEIN C ACTIVITY 100 % (70 - 150)
[2017-03-10 14:49] LABS: INTERPRETATION See Comments
== END 2017-03-07 11:50 | disposition home or self-care (01) ==
LOC: INTOOBSV 11:52 → F3E 13:38
PROVIDERS: ADMIT Surgery; ATTEND Surgery
DX: I26.99 Other pulmonary embolism without acute cor pulmonale (principal); J18.1 Lobar pneumonia, unspecified organism; I10 Essential (primary) hypertension; E78.5 Hyperlipidemia, unspecified; G47.33 Obstructive sleep apnea (adult) (pediatric); Z87.891 Personal history of nicotine dependence
CPT/HCPCS: 71010; 71020; 71275; 74176; 76705; 78226; 93005; A9537; G0378; 85220-90; 85300-90; 85303-90; 85306-90; 86147-90; 96365; J1170; J1885; J1956; J2405; Q9967

== ENCOUNTER → 2017-04-29 | Outpatient (CLI) | payer OTHER | LOC: FIMAGING 08:49 | PROVIDERS: ATTEND Orthopaedic Surgery | DX: S83.241A Other tear of medial meniscus, current injury, right knee, initial encounter (principal); M25.461 Effusion, right knee ==

== ENCOUNTER → 2017-05-15 | Outpatient (CLI) | payer OTHER | LOC: FIMAGING 14:04 | PROVIDERS: ATTEND Podiatrist Primary Podiatric Medicine | DX: S82.64XA Nondisplaced fracture of lateral malleolus of right fibula, initial encounter for closed fracture (principal); S93.431A Sprain of tibiofibular ligament of right ankle, initial encounter; M76.71 Peroneal tendinitis, right leg; M76.891 Other specified enthesopathies of right lower limb, excluding foot; M72.2 Plantar fascial fibromatosis ==

== ENCOUNTER → 2017-05-16 | Outpatient (CLI) | payer OTHER | LOC: FIMAGING 11:40 | PROVIDERS: ATTEND Podiatrist Primary Podiatric Medicine | DX: S93.492A Sprain of other ligament of left ankle, initial encounter (principal); M77.9 Enthesopathy, unspecified ==

== ENCOUNTER 2017-05-17 13:08 | Day surgery (SDC) | payer OTHER ==
--- NOTE | 2017-05-16 20:28 | GHP ---
[f rep st] PREOP HISTORY AND PHYSICAL DATE OF ADMISSION: 05/17/2017 DATE OF SURGERY: 05/17/2017. HISTORY: The patient is a 56-year-old male, who presents with left knee pain and swelling. He has guy d an arthroscopy some years ago for meniscal work. He has had viscosupplementation and this is no quinn mari helpful. Most of his pain is medial. His persistent symptoms prompted an MRI in April, this mo [facility]2016. He has an upper surface tear throughout the posterior horn, medial meniscus and body, prob able undersurface tear of the anterior rim with grade 2 and 3 articular cartilage disease in the medi al compartment, and degenerative changes. There is grade 2 and 3 articular cartilage in the patellofe moral compartment. There is a suprapatellar effusion, mild synovial proliferation. Arthroscopy of the right knee is planned. I am anticipating chondroplasty and meniscal work. the arthritic component of this knee presentation at 56, we will proceed with arthroscopy in hopes that this will g dianelys him better comfort and function. ALLERGIES: He has an allergy to Levaquin, which largely causes myalgias. MEDICATIONS: Include atorvastatin 40 mg p.o. daily, Crestor 20 mg p.o. daily, Eliquis 5 mg p.o. fernando y, lisinopril 20 mg p.o. daily, furosemide 40 mg p.o. daily, gabapentin 300 mg p.o. daily, ProAir aer osol. SURGERIES: Include a left knee arthroscopy, right knee arthroscopy, a right carpal tunnel release. D oes have a history of blood clots, elevated cholesterol, hypertension and sleep apnea. PHYSICAL EXAM: GENERAL: He is a well-developed, well-nourished male, in no apparent distress. HEAD A ND NECK: Normocephalic, atraumatic. CHEST: Clear. CARDIOVASCULAR: Regular rate and rhythm. ABDOMEN: S oft. NEUROLOGICALLY: He is alert and oriented x3. Examination the right knee shows near full extensio n to 120 degrees. He has a small effusion. He has medial joint line tenderness ligamentously stable. Jacy test is negative. No pivot shift. No posterior sag. Collateral ligaments are stable. Medial M cMurray test. Mildly positive lateral Tamara's unremarkable. 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 PLAN: Right knee arthroscopy, chondroplasty, meniscal work as needed. Benefits and risks of surgery have been reviewed. He has signed his consent form, wishes to proceed. /[id number]/MODL
[2017-05-17] MEDS ORDERED: ceFAZolin 2 GM/SWFI 2 GM/20 ML SYR IVP ONE (13:36)
[2017-05-17] MEDS ORDERED: LR 1,000 ML IV SCH (13:36)
[2017-05-17 13:56] VITALS: PULSE 71
[2017-05-17] MEDS ORDERED: LIDOCAINE 1% 2 ML INJ ID PRN (13:57)
[2017-05-17] MEDS ORDERED: LR 1,000 ML IV ONE (13:57)
[2017-05-17] MEDS ORDERED: BUPIVACAINE/EPI 0.5% 30 ML SDV ONE (14:40)
[2017-05-17] MEDS ORDERED: BUPIVACAINE 0.5% 30 ML SDV ONE (14:40)
[2017-05-17] MEDS ORDERED: DEPO METHYLPREDNISOLONE 40 MG/ML SDV ONE (14:41)
--- NOTE | 2017-05-17 15:39 | PDANEPAE ---
ANE History of Present Illness Right Knee meniscal tear ANE Past Medical History - Cardiovascular History Hx Hypertension: Yes Hx Arrhythmias: No Hx Chest Pain: No Hx Coronary Artery / Peripheral Vascular Disease: No Hx CHF / Valvular Disease: No Hx Palpitations: No Cardiovascular History Comment: CALCIUM CALCIFICATIONS - Pulmonary History Hx COPD: No Hx Asthma/Reactive Airway Disease: No Hx Recent Upper Respiratory Infection: No Hx Oxygen in Use at Home: No Hx Sleep Apnea: Yes Sleep Apnea Screening Result - Last Documented: Positive Pulmonary History Comment: cassandra positive uses cpap instructed pt to bring cpap to hospital - Neurologic History Hx Cerebrovascular Accident: No Hx Seizures: No Hx Dementia: No - Endocrine History Hx Diabetes: No Hypothyroid: No Hyperthyroid: No Obesity: moderate - Renal History Hx Renal Disorders: No - Liver History Hx Hepatic Disorders: No - Neurological & Psychiatric Hx Hx Neurological and Psychiatric Disorders: No Neurological / Psychiatric History Comment: DEPRESSION - Cancer History Hx Cancer: No - Congenital Disorder History Hx Congenital Disorders: No - GI History GERD: no Hx Gastrointestinal Disorders: No - Other Health History Other Health History: none - Chronic Pain History Chronic Pain: No - Surgical History Prior Surgeries: left knee scope with dr marinelli 05/13/13. right knee scope with dr marinelli in 2009. knuckle surgeries on bilateral hands 2012 ANE Review of Systems Review of Systems: - Exercise capacity METS (RN): 4 METS ANE Patient History - Allergies Allergies/Adverse Reactions: levofloxacin Allergy (Verified 05/11/17 17:10) BLACK BOX WARNING-ACHILLES ISSUES - Home Medications Home Medications: Aspirin EC [Aspirin EC 81 mg (*)] 81 mg PO DAILY 03/05/17 [Last Taken 05/12/17] Atorvastatin Calcium [Lipitor 40 mg (*)] 40 mg PO DAILY06 03/05/17 [Last Taken 05/17/17 06:00] Cholecalciferol Vit D3 [Vitamin D3 (*)] 5,000 units PO DAILY 03/05/17 [Last Taken 05/17/17 06:00] Furosemide [Lasix 40 MG (*)] 40 mg PO DAILY06 03/05/17 [Last Taken 05/17/17 06: 00] Gabapentin [Neurontin 300 MG (*)] 600 mg PO HS 03/05/17 [Last Taken 05/12/17] Lisinopril [Zestril 20 mg (*)] 20 mg PO DAILY06 03/05/17 [Last Taken 05/17/17 06 :00] Melatonin/Pyridoxine [Melatonin 5 mg Tablet] 1 each PO HS 03/05/17 [Last Taken 03/05/17] Herbal Drugs DAILY 05/11/17 [Last Taken 05/12/17] - NPO status NPO Since - Liquids (Date): 05/17/17 NPO Since - Liquids (Time): 11:30 NPO Since - Solids (Date): 05/16/17 NPO Since - Solids (Time): 20:00 - Smoking Hx Smoking Status: Former smoker - Family Anes Hx Family Hx Anesthesia Complications: none ANE Labs/Vital Signs - Vital Signs Blood Pressure: 127/84 Heart Rate: 71 Respiratory Rate: 14 Height: 175.26 cm Weight: 49.379 kg ANE Physical Exam - Airway Neck exam: decreased ROM Mallampati Score: Class 1 Mouth exam: normal dental/mouth exam - Pulmonary Pulmonary: no respiratory distress, no rales or rhonchi - Cardiovascular Cardiovascular: regular rate and rhythym - ASA Status ASA Status: II ANE Anesthesia Plan Anesthesia Plan: GA w LMA
[2017-05-17] MEDS ORDERED: fentaNYL 100 MCG/2 ML INJ ONE ×2 (15:47)
[2017-05-17] MEDS ORDERED: PROPOFOL/EMULSION 500 MG/50 ML BOTTLE IV ONE (15:48)
[2017-05-17] MEDS ORDERED: PROPOFOL 200 MG/20 ML VIAL ONE (15:58)
[2017-05-17] MEDS ORDERED: DEXAMETHASONE 4 MG/ML VIAL ONE (16:05)
[2017-05-17] MEDS ORDERED: LIDOCAINE 2% 5 ML SDV ONE (16:06)
[2017-05-17] MEDS ORDERED: fentaNYL 100 MCG/2 ML INJ IVP PRN (16:39)
[2017-05-17] MEDS ORDERED: HYDROCODONE/APAP 5/325 TAB PO PRN (16:39)
[2017-05-17] MEDS ORDERED: OXYCODONE/APAP 5/325 TAB PO PRN (16:39)
[2017-05-17] MEDS ORDERED: ONDANSETRON 4 MG/2 ML VIAL IVP PRN (16:39)
[2017-05-17] MEDS ORDERED: NALOXONE HCL 0.4 MG/ML INJ IVP PRN (16:39)
[2017-05-17] MEDS ORDERED: PROMETHAZINE HCL 25 MG/ML INJ IVP PRN (16:39)
[2017-05-17] MEDS ORDERED: HYDROmorphONE/DILAUDID 1 MG/ML INJ IVP PRN (16:39)
[2017-05-17 17:17] VITALS: TEMP 97.5
[2017-05-17] MEDS ORDERED: HYDROCODONE/APAP 5/325 TAB ONE (17:26)
[2017-05-17 18:22] VITALS: BP 140/92; RESP 18; O2SAT 92
--- NOTE | 2017-05-18 03:28 | GOP ---
[f rep st] OPERATIVE REPORT DATE OF OPERATION: SURGEON: Ari Saxena MD ANESTHESIOLOGIST: Dr. Radha Sosa PREOPERATIVE DIAGNOSIS: Right knee degenerative medial meniscal tear, medial and patellofemoral albin dromalacia. POSTOPERATIVE DIAGNOSIS: Right knee degenerative medial meniscal tear, medial and patellofemoral cho ndromalacia. PROCEDURE PERFORMED: Right knee arthroscopy, partial medial meniscectomy, medial and patellofemoral compartment chondroplasty. FINDINGS: Exam under anesthesia demonstrates a stable knee with good motion. He has a mild effusion . On arthroscopy, the patellofemoral articulation is abnormal. There is diffuse grade 2 and 3 chond romalacia of the undersurface of the patella, and the cartilage is quite fibrillated. In the distal trochlear sulcus, there is grade 2 to 3 chondromalacia as well. There is abundant synovitis in the s uprapatellar pouch and in the anterior joint. In the medial compartment, there is arthritic wear. T here is chondromalacia on the plateau, ranging from grade 2 to a small patch of grade 3 on the medial -most medial plateau. This medial meniscus has been trimmed previously, but there is some fraying of the remaining posterior horn and midbody. The medial femoral condyle has diffuse grade 2 to 3 chond romalacia, some of the edges of which are unstable. The lateral compartment is the best preserved. The articular surface has minimal chondromalacia, the meniscus a little bit of inner rim fraying, but overall in fairly good shape. The ACL is intact in the notch. There is a small osteophyte anterior ly that does impinge with extension, that I will smooth. Overall, this knee is amenable to chondropl asty in the medial and patellofemoral joints and smoothing of the medial degenerative meniscal tear, and a little work on the notch where there is an impinging osteophyte. INDICATIONS: The patient is a 56-year-old male whom I have followed in my practice for some time. H rosa has had progressive arthritis of the right knee. This is exhibited by chondromalacia and cartilage thinning in the medial and patellofemoral compartments. He also has a degenerative appearing oil and gas principal ior horn medial meniscal tear. He is having persistent swelling and discomfort, not managed currentl y with injections. Arthroscopy with meniscal work and debridement chondroplasty is planned. DESCRIPTION OF PROCEDURE: The patient was taken to the operating room, placed supine on the operatin g table, and placed under general anesthetic. He received 2 g of IV Ancef. A leg langford was placed on the right thigh to stabilize the knee. Of note, he has a lateral malleolus fracture. It is nondi splaced, transverse, and extreme care was taken to double wrap his ankle and to avoid twisting or any inversion of the ankle. Standard chlorhexidine prep was used. I used standard arthroscopy portals, and the entire knee was inspected with the above-noted findings. I used a rotary shaver in the medi al compartment to smooth the medial meniscus back to a stable rim, and also to smooth the tibial and especially the femoral surfaces. The shaver easily smoothed the small osteophyte that was impinging near the notch. I also smoothed the distal trochlear groove, as well as the undersurface of the franklin lla. I suspect that all of these areas of chondromalacia were generating enough particulate debris t o generate his synovitis. I did sweep in and do some partial synovectomy work where I needed to to v isualize the joint. The joint was irrigated. I placed 20 cc of 0.5% plain Marcaine with 1 cc of Dep o-Medrol 40 mg/cc, and closed the portals with 4-0 Prolene. The wounds were dressed with Betadine-so aked Adaptic, 4 x 4, sterile Webril, and a long-leg JACOB stocking. He has a splint for the ankle. Th ere were no complications, the estimated blood loss minimal, no drains, no specimens, all counts elliot ect, and the patient was taken in stable condition to recovery. /[id number]/MODL
== END 2017-05-17 18:30 | disposition home or self-care (01) ==
LOC: FSGY 13:08
PROVIDERS: ATTEND Orthopaedic Surgery
DX: M23.221 Derangement of posterior horn of medial meniscus due to old tear or injury, right knee (principal); M23.211 Derangement of anterior horn of medial meniscus due to old tear or injury, right knee; M22.41 Chondromalacia patellae, right knee; I10 Essential (primary) hypertension; G47.33 Obstructive sleep apnea (adult) (pediatric)
CPT/HCPCS: J0690; J1030; J1100; J2704; J3010

== ENCOUNTER → 2017-09-22 | Outpatient (CLI) | payer OTHER | LOC: FIMAGING 14:14 | PROVIDERS: ATTEND Podiatrist Primary Podiatric Medicine | DX: S82.61XA Displaced fracture of lateral malleolus of right fibula, initial encounter for closed fracture (principal); S93.411A Sprain of calcaneofibular ligament of right ankle, initial encounter; S86.311A Strain of muscle(s) and tendon(s) of peroneal muscle group at lower leg level, right leg, initial encounter; M72.2 Plantar fascial fibromatosis; X58.XXXA Exposure to other specified factors, initial encounter ==

== ENCOUNTER 2017-09-28 09:34 | Day surgery (SDC) | payer OTHER ==
[2017-09-28] MEDS ORDERED: LR 1,000 ML IV ONE (09:54)
[2017-09-28] MEDS ORDERED: ceFAZolin 2 GM/SWFI 2 GM/20 ML SYR IVP ONE (10:00)
--- NOTE | 2017-09-28 10:20 | PDHPUP ---
History & Physical Update H&P update statement: This history and physical update is based on an assessment of the patient which was completed after admission or registration (within 24 hours), but prior to the surgery/procedure. H&P update: H&P reviewed & patient examined, no change in patient's condition since H&P completed H&P changes: none
[2017-09-28] MEDS ORDERED: BUPIVACAINE 0.25% 30 ML SDV ONE ×2 (10:23→12:40)
[2017-09-28] MEDS ORDERED: BACITRACIN 50,000 UNITS/10 ML SYR IRR ONE (10:23)
[2017-09-28] MEDS ORDERED: LIDOCAINE 2% JELLY 5 ML TUBE ONE (11:00)
[2017-09-28] MEDS ORDERED: DEXAMETHASONE 4 MG/ML VIAL ONE ×2 (11:00)
[2017-09-28] MEDS ORDERED: LIDOCAINE 2% 5 ML SDV ONE ×2 (11:00→12:19)
[2017-09-28] MEDS ORDERED: ONDANSETRON 4 MG/2 ML VIAL ONE (11:00)
[2017-09-28] MEDS ORDERED: fentaNYL 250 MCG/5 ML INJ ONE (11:00)
[2017-09-28] MEDS ORDERED: PROPOFOL 200 MG/20 ML VIAL ONE (11:00)
[2017-09-28] MEDS ORDERED: PHENYLEPHRINE HCL 100 MCG/ML SYR ONE ×2 (11:16→12:02)
--- NOTE | 2017-09-28 11:33 | PDANEPAE ---
ANE Past Medical History - Cardiovascular History Hx Hypertension: No Hx Arrhythmias: No Hx Chest Pain: No Hx Coronary Artery / Peripheral Vascular Disease: No Hx CHF / Valvular Disease: No Hx Palpitations: No Cardiovascular History Comment: CALCIUM CALCIFICATIONS - Pulmonary History Hx COPD: No Hx Asthma/Reactive Airway Disease: No Hx Recent Upper Respiratory Infection: No Hx Oxygen in Use at Home: No Hx Sleep Apnea: Yes Sleep Apnea Screening Result - Last Documented: Positive Pulmonary History Comment: cassandra positive uses cpap instructed pt to bring cpap to hospital - Neurologic History Hx Cerebrovascular Accident: No Hx Seizures: No Hx Dementia: No - Endocrine History Hx Diabetes: No - Renal History Hx Renal Disorders: No - Liver History Hx Hepatic Disorders: No - Neurological & Psychiatric Hx Hx Neurological and Psychiatric Disorders: No Neurological / Psychiatric History Comment: DEPRESSION - Cancer History Hx Cancer: No - Congenital Disorder History Hx Congenital Disorders: No - GI History Hx Gastrointestinal Disorders: No - Other Health History Other Health History: none - Chronic Pain History Chronic Pain: No - Surgical History Prior Surgeries: left knee scope with dr marinelli 05/13/13. right knee scope with dr marinelli in 2009. knuckle surgeries on bilateral hands 2012 ANE Review of Systems Review of Systems: - Exercise capacity METS (RN): 4 METS ANE Patient History - Allergies Allergies/Adverse Reactions: ciprofloxacin [From Cipro] Allergy (Verified 09/25/17 16:39) levofloxacin Allergy (Verified 05/11/17 17:10) BLACK BOX WARNING-ACHILLES ISSUES - Home Medications Home Medications: Aspirin EC [Aspirin EC 81 mg (*)] 81 mg PO DAILY 03/05/17 [Last Taken 1 Week Ago ~09/21/17] Atorvastatin Calcium [Lipitor 40 mg (*)] 40 mg PO DAILY06 03/05/17 [Last Taken 1 Day Ago ~09/27/17] Cholecalciferol Vit D3 [Vitamin D3 (*)] 5,000 units PO DAILY 03/05/17 [Last Taken 09/24/17] Furosemide [Lasix 40 MG (*)] 40 mg PO DAILY06 03/05/17 [Last Taken 1 Day Ago ~] Lisinopril [Zestril 20 mg (*)] 20 mg PO DAILY06 03/05/17 [Last Taken 09/28/17] Melatonin/Pyridoxine [Melatonin 5 mg Tablet] 1 each PO HS 03/05/17 [Last Taken 1 Day Ago ~09/27/17] Herbal Drugs DAILY 05/11/17 [Last Taken 09/24/17] - NPO status NPO Since - Liquids (Date): 09/28/17 NPO Since - Liquids (Time): 06:00 NPO Since - Solids (Date): 09/27/17 NPO Since - Solids (Time): 22:00 - Anes Hx Anes Hx: no prior problems - Smoking Hx Smoking Status: Former smoker - Family Anes Hx Family Hx Anesthesia Complications: none ANE Labs/Vital Signs - Vital Signs Blood Pressure: 106/70 Heart Rate: 78 Respiratory Rate: 18 O2 Sat (%): 91 Height: 175.26 cm Weight: 65.771 kg ANE Physical Exam - Airway Neck exam: FROM Mallampati Score: Class 1 Mouth exam: normal dental/mouth exam - Pulmonary Pulmonary: no respiratory distress, no rales or rhonchi, clear to auscultation - Cardiovascular Cardiovascular: regular rate and rhythym, no murmur, rub, or gallop ANE Anesthesia Plan Anesthesia Plan: GA w LMA
[2017-09-28] MEDS ORDERED: epHEDrine SULFATE 10 MG/ML SYR ONE (11:45)
[2017-09-28] MEDS ORDERED: NALOXONE HCL 0.4 MG/ML INJ IVP PRN (12:28)
[2017-09-28] MEDS ORDERED: HYDROmorphONE/DILAUDID 2 MG/ML INJ IVP PRN (12:28)
[2017-09-28] MEDS ORDERED: fentaNYL 100 MCG/2 ML INJ IVP PRN (12:28)
[2017-09-28] MEDS ORDERED: oxyCODONE IR 5 MG TAB PO PRN (12:28)
[2017-09-28] MEDS ORDERED: ACETAMINOPHEN 500 MG TAB PO PRN (12:28)
[2017-09-28] MEDS ORDERED: MEPERIDINE 25 MG/ML SYR IVP PRN (12:28)
[2017-09-28] MEDS ORDERED: ONDANSETRON 4 MG/2 ML VIAL IVP PRN (12:28)
[2017-09-28] MEDS ORDERED: LABETALOL HCL 5 MG/ML 20 ML MDV IVP PRN (12:28)
[2017-09-28] MEDS ORDERED: PROMETHAZINE HCL 25 MG/ML INJ IVP PRN (12:28)
[2017-09-28] MEDS ORDERED: LR 500 ML IV PRN (12:28)
[2017-09-28] MEDS ORDERED: ENALAPRILAT DIHYDRATE 1.25 MG/ML VIAL IVP PRN (12:28)
--- NOTE | 2017-09-28 13:06 | POSTOPPROG ---
Post Op Note Date of Operation: 09/28/17 Surgeon: Rommel Calderon Division Chair: none Anesthesiologist: popeye Anesthesia: IV Sedation Pre-op Diagnosis: right fibular frature with ligament tears Post-op Diagnosis: same Indication: nonunion fracture Procedure: orif right fibular fracture Findings: ligament tear Inf/Abcess present in the surg proc area at time of surgery?: No Depth: Deep Incisional (Fascial) EBL: Minimal Total fluids administered: 28cc .25% marcaine plain and 2cc .25% marcaine with epi Complications: none Drains: Other (none)
--- NOTE | 2017-09-28 13:14 | POSTANESTH ---
Post Anesthetic Evaluation Cardiovascular Status: Normal, Stable, Similar to Pre-Op Cond Respiratory Status: Normal, Stable, Similar to Pre-op Cond. Level of Consciousness/Mental Status: Can Participate in Eval, Alert and Oriented Pain Control: Adequate, Prn Tx Ordered Nausea/Vomiting Control: Adequate, Prn Tx Ordered Complications Possibly Related to Anesthesia: None Noted
[2017-09-28] MEDS ORDERED: fentaNYL 100 MCG/2 ML INJ ONE (13:17)
[2017-09-28] MEDS ORDERED: HYDROCODONE/APAP 5/325 TAB ONE ×2 (13:27→13:59)
[2017-09-28] MEDS: HYDROCODONE/APAP 5/325 TAB PO PRN ×2 (13:40→14:06)
[2017-09-28 14:59] VITALS: BP 122/78
--- NOTE | 2017-09-28 21:11 | GOP ---
[f rep st] OPERATIVE REPORT DATE OF OPERATION: 09/28/2017 SURGEON: Rommel Calderon DPM OTOLARYNGOLOGY TEACHER: None. ANESTHESIA: Local with MAC. ANESTHESIOLOGIST: Ari Avery MD. PREOPERATIVE DIAGNOSIS: 1. Right fibular fracture nonunion. 2. Right lateral ankle instability. POSTOPERATIVE DIAGNOSIS: 1. Right fibular fracture nonunion. 2. Right lateral ankle instability. PROCEDURE PERFORMED: 1. Open reduction and internal fixation, right fibular fracture. 2. Autologous bone grafting, right fibula. 3. Modified Brostrom lateral ankle reconstruction, right. FINDINGS: ESTIMATED BLOOD LOSS: Minimal. DESCRIPTION OF PROCEDURE: Patient presented to [facility], was cleared for the intende d procedure. Patient was taken to the operating room and placed on the table in supine position. IV sedation was started per the anesthesia department. Foot was anesthetized in an infiltrative nerve block fashion. Foot was prepped, scrubbed and draped in the usual sterile fashion. Following exsang uination by elevation and Esmarch bandage, pneumatic ankle tourniquet was inflated to 225 mmHg. At t his time, attention was directed to the lateral aspect of the right ankle where a curvilinear incisio n was made over the distal fibula. The incision was carried deep utilizing sharp and blunt dissectio n, making sure that all neurovascular structures were identified and retracted. At this time, all flores perficial bleeders were cauterized. The incision was carried down deep to the level of the periosteu m. A periosteal incision was made and dissected free medially and laterally to allow for adequate ex posure to the lateral malleolus. At this time, utilizing C-arm fluoroscopy, an anterior drawer test was performed which showed substantial laxity of the ankle. Testing of the syndesmosis did not show a diastasis injury of the ankle joint. The area was flushed with copious amounts of sterile saline. At this time, the obvious fracture of the distal fibula was identified. The area had some fibrous t issue between the fracture fragments, which was freed up and dissected and removed. The area was cur etted back to healthy bone. Given the gapping across the fracture site, it was decided that autologo us bone grafting would be performed. Bone marrow aspirate was then obtained from the calcaneus, whic h was mixed with the [employer] mini Ignite demineralized bone matrix. This was mixed into the c onsistency of a putty, which was then placed between the 2 fracture fragments. Upon completion of th is, the hook plate was impacted into the distal fibula. Upon completion of this, a BB-Andre was utiliz ed at the proximal end to hold this in place. It was decided at this time that a 2.7 locking screw w ould be utilized in the distal fragment. The area was drilled and measured appropriately before a 14 mm locking screw was introduced through the middle oblong hole of the plate. It was decided eccentr ic drilling would be performed to obtain compression across the site as well. The 3.5 cortical screw was drilled at the most proximal end of this hole. Again, the area was measured appropriately befor e an 18 mm screw was introduced. As the screw was tightened, the BB-Andre from the most proximal hole was removed and this allowed the plate to move proximal compressing the fracture site even more. Upo n completion of this, a final cortical screw was drilled in through the most proximal hole and a 14 m m screw was introduced. A stable construct was noted with excellent compression at the fracture site . At this time, the area was flushed with copious amounts of sterile saline. Given the laxity of th e ankle joint, it was decided that a modified Brostrom lateral ankle reconstruction was necessary. B efore this happened though, inspection of the peroneal tendon complex was performed just posterior an d distal to the lateral malleolus. No evidence of tearing of the tendons was identified at this time . The area was again flushed with copious amounts of sterile saline. Given the patient's size, it w as decided that the Arthrex mini Bio SutureTak anchors would not be firm enough and instead decided t o proceed with the DX FiberTak anchors. They were drilled at the insertion sites at the distal end o f the calcaneus and on the anterior distal portion of the fibula at the original attachment sites of the anterior talofibular and calcaneal fibular ligaments. The anchors were placed into the bone appr opriately and were noted to hold well upon stress testing of the suture. At this time, the ATF and C F ligaments were reconstructed utilizing a [id number] arrangement. Upon completion of this, aga in, anterior drawer testing was performed and no displacement was noted. The area was again flushed for a final time before periosteum and capsular tissues were closed over the site with 3-0 Vicryl fol lowed by subcutaneous closure with 5-0 Vicryl and skin closure with 4-0 nylon. The area was again in filtrated with 10 cc of 0.25% Marcaine plain at this time. The area was dressed with Betadine-soaked Adaptics, 4x4s, Yemi, and Coban. Patient was taken to recovery room with vital signs stable, vascu lar supply intact to digits 1 through 5 bilaterally after the pneumatic ankle tourniquet had been rel eased for a total tourniquet time of 89 minutes. PATHOLOGY: None. HEMOSTASIS: PAT at 225 mmHg for 89 minutes. MATERIALS: Arthrex, 3-hole, distal, lateral fibular hook plate; Arthrex 2.7 locking screw x14 mm; Ar threx 3.5 cortical screws x 14 and 18 mm; [employer] mini Ignite; Arthrex DX FiberTak anchors x2. INJECTABLES: 20 cc 9:1 ratio 0.25% Marcaine plain, 0.25% Marcaine with epi preoperatively; 10 cc 0.2 5% Marcaine plain postoperatively. COMPLICATIONS: None. /[id number]/MODL
== END 2017-09-28 15:00 | disposition home or self-care (01) ==
LOC: FSGY 09:34
PROVIDERS: ATTEND Podiatrist Primary Podiatric Medicine
PROC: 0QBL0ZZ Excision of Right Tarsal, Open Approach (ICD-10-PCS; principal; 2017-09-28 11:15)
PROC: 0LSV0ZZ Reposition Right Foot Tendon, Open Approach (ICD-10-PCS; principal; 2017-09-28 11:15)
PROC: 0QSJ04Z Reposition Right Fibula with Internal Fixation Device, Open Approach (ICD-10-PCS; principal; 2017-09-28 11:15)
PROC: 3E0V0GB Introduction of Recombinant Bone Morphogenetic Protein into Bones, Open Approach (ICD-10-PCS; principal; 2017-09-28 11:15)
DX: S82.61XA Displaced fracture of lateral malleolus of right fibula, initial encounter for closed fracture (principal); S93.411A Sprain of calcaneofibular ligament of right ankle, initial encounter; S93.491A Sprain of other ligament of right ankle, initial encounter; X50.9XXA Other and unspecified overexertion or strenuous movements or postures, initial encounter; Y93.01 Activity, walking, marching and hiking; G47.33 Obstructive sleep apnea (adult) (pediatric); Z87.891 Personal history of nicotine dependence; Z98.1 Arthrodesis status
CPT/HCPCS: C1713; J0171; J0690; J1100; J2370; J2405; J2704; J3010

== ENCOUNTER → 2018-09-15 | Outpatient (CLI) | payer OTHER | LOC: FIMAGING 08:20 | PROVIDERS: ATTEND Family Medicine | DX: S46.012A Strain of muscle(s) and tendon(s) of the rotator cuff of left shoulder, initial encounter (principal); S43.431A Superior glenoid labrum lesion of right shoulder, initial encounter; M75.52 Bursitis of left shoulder ==